=== PATIENT | female | born 1940 | race Caucasian/White ===

== ENCOUNTER 2019-04-12 20:38 | Inpatient (IN) ==
[2019-04-12] MEDS ORDERED: METOPROLOL TARTRATE 5 MG/5 ML VIAL IV STA (21:26)
[2019-04-12 21:27] LABS: Basophils # 0.1 10*3/uL (0.0-0.2); Basophils % 0.6 % (0.0-0.8); Eosinophils # 0.5 10*3/uL (0.0-0.87); Hematocrit 36.2 VOL% (35.7-47.0); Hemoglobin 11.2 GM/DL (12.0-16.0); Immature Granulocytes % 0.5 %; Immature Granulocytes Absolute 0.06 #; Lymphocytes # 1.8 10*3/uL (1.4-4.0); Lymphocytes % 13.8 % (21.3-54.2); Mean Corpuscular HGB Conc 30.9 GM/DL (32-36); Mean Corpuscular Volume 88.5 FL (87-102); Monocytes % 7.1 % (1.7-12.7); Platelet Count 321 T/CUMM (130-400); Red Blood Count 4.09 MC/CUMM (3.8-5.5); Red Cell Distribution Width 13.7 % (9.3-17.3); White Blood Count 12.8 T/CUMM (4-12)
[2019-04-12 21:35] LABS: PT Patient Result 11.2 SECS
[2019-04-12 21:49] LABS: Bilirubin,Total 0.5 MG/DL (0.2-1.0); Calcium 9.2 MG/DL (8.5-10.1); Osmolality,Calculated 273.7 MOS/KG (273-304); Total Protein 8.4 G/DL (6.4-8.3)
[2019-04-12 22:05] LABS: Apearance,Urine CLEAR (Clear); Bilirubin,Urine Negative (Negative); Blood, Urine Small mg/dL (Negative); Glucose,Urine (UA) Negative (Negative); Ketones,Urine 20 mg/dL (Negative); Nitrite,Urine Negative (Negative); Protein,Urine 30 MG/DL; RBC,Urine 1 /HPF (0-4); Squamous Epithelial Cell,Urine Occasional /HPF (0-10); Urine Color Yellow (Yellow); Urine Specific Gravity 1.009 (1.001-1.035); Urine Urobilinogen < 2.0 EU/DL (0.2-1.0); WBC,Urine 2 /HPF (0-6)
[2019-04-12] MEDS ORDERED: ASPIRIN CHEW 81 MG TABLET PO STA (22:14)
[2019-04-12] MEDS ORDERED: ENOXAPARIN 60 MG/0.6 ML SYRINGE SUBCUT STA (22:14)
[2019-04-12] MEDS ORDERED: hydrALAZINE 20 MG/1 ML VIAL IV STA (22:14)
[2019-04-12] MEDS ORDERED: POTASSIUM CHLORIDE RIDER 10 MEQ in PREMIX 1 EACH IV ONE (22:32)
[2019-04-12] MEDS ORDERED: POTASSIUM CHLORIDE 20 MEQ TABLET PO PRN (23:11)
[2019-04-12] MEDS ORDERED: MORPHINE 4 MG/1 ML VIAL IV PRN (23:11)
[2019-04-12] MEDS ORDERED: diphenhydrAMINE CAP 25 MG CAPSULE PO PRN (23:11)
[2019-04-12] MEDS ORDERED: BISACODYL 5 MG TABLET PO PRN (23:11)
[2019-04-12] MEDS ORDERED: NICOTINE 21 MG/24 HR PATCH TRANSDERM PRN (23:11)
[2019-04-12] MEDS ORDERED: guaiFENesin/DM ER 600-30 MG TABLET PO PRN (23:11)
[2019-04-12] MEDS ORDERED: ZALEPLON 5 MG CAPSULE PO PRN (23:11)
[2019-04-12] MEDS ORDERED: ACETAMINOPHEN 325 MG TABLET PO PRN (23:11)
[2019-04-12] MEDS ORDERED: ONDANSETRON 4 MG/2 ML VIAL IV PRN (23:11)
[2019-04-12] MEDS ORDERED: ALBUTEROL/IPRATROPIUM 3 ML NEB RESP TX PRN (23:11)
[2019-04-13 00:05] LABS: Risk Ratio 4.02; Thyroid Stimulating Hormone 0.785 uIU/ml (0.358-3.74); VLDL CHOLESTEROL 21.4 MG/DL
[2019-04-13] MEDS: cefTRIAXone 1,000 MG in SYRINGE 1 EACH IV SCH ×3 (00:05→12:23)
[2019-04-13] MEDS: AZITHROMYCIN INJ 500 MG in SODIUM CHLORIDE 0.9% 250 ML IV SCH (01:26)
[2019-04-13 06:37] LABS: Basophils # 0.1 10*3/uL (0.0-0.2); Basophils % 0.4 % (0.0-0.8); Eosinophils # 0.2 10*3/uL (0.0-0.87); Eosinophils % 1.2 % (0.00-10.9); Hematocrit 35.4 VOL% (35.7-47.0); Hemoglobin 10.8 GM/DL (12.0-16.0); Immature Granulocytes % 0.6 %; Immature Granulocytes Absolute 0.09 #; Lymphocytes # 1.1 10*3/uL (1.4-4.0); Lymphocytes % 7.2 % (21.3-54.2); Mean Corpuscular HGB Conc 30.5 GM/DL (32-36); Mean Corpuscular Volume 88.5 FL (87-102); Mean Platelet Volume 9.7 FL (9.6-12.0); Monocytes % 6.4 % (1.7-12.7); Neutrophils % 84.2 % (38.7-73.9); Platelet Count 320 T/CUMM (130-400); Red Cell Distribution Width 13.6 % (9.3-17.3); White Blood Count 15.3 T/CUMM (4-12)
[2019-04-13 06:56] LABS: Albumin 2.8 G/DL (3.4-5.0); Bilirubin,Total 0.4 MG/DL (0.2-1.0); Calcium 8.8 MG/DL (8.5-10.1); Osmolality,Calculated 274.7 MOS/KG (273-304); Total Protein 7.8 G/DL (6.4-8.3)
[2019-04-13] MEDS: ASPIRIN 325 MG TABLET PO SCH (08:33)
[2019-04-13] MEDS: POTASSIUM CHLORIDE 20 MEQ TABLET PO SCH ×3 (08:33→16:27)
[2019-04-13] MEDS: PANTOPRAZOLE 40 MG TABLET PO SCH (08:33)
[2019-04-13] MEDS: LACTATED RINGERS 1,000 ML IV SCH ×2 (08:35→20:38)
[2019-04-13] MEDS: hydrALAZINE 20 MG/1 ML VIAL IV PRN (08:52)
[2019-04-13] MEDS ORDERED: ENOXAPARIN 60 MG/0.6 ML SYRINGE SUBCUT SCH (09:00)
[2019-04-13 09:43] LABS: Vitamin B12 > 2000 PG/ML (211-911)
[2019-04-13] MEDS: ENOXAPARIN 40 MG/0.4 ML SYRINGE SUBCUT SCH (12:27)
[2019-04-13] MEDS ORDERED: methylPREDNISolone SOD SUC 40 MG/1 ML VIAL IV SCH (12:30)
[2019-04-13] MEDS: LISINOPRIL 10 MG TABLET PO SCH ×2 (14:28→21:40)
[2019-04-13] MEDS: ALBUTEROL/IPRATROPIUM 3 ML NEB RESP TX SCH ×3 (16:06→23:35)
[2019-04-13] MEDS: METAXALONE 800 MG TABLET PO SCH ×2 (16:27→21:40)
[2019-04-13] MEDS: ARFORMOTEROL 15 MCG/2 ML NEB RESP TX SCH (20:05)
[2019-04-13] MEDS: DORNASE ALFA 2.5 MG/2.5 ML VIAL RESP TX SCH (21:20)
[2019-04-13] MEDS: methylPREDNISolone SOD SUC 40 MG/1 ML VIAL IV SCH (21:41)
[2019-04-14] MEDS: AZITHROMYCIN INJ 500 MG in SODIUM CHLORIDE 0.9% 250 ML IV SCH (00:06)
[2019-04-14] MEDS: ALBUTEROL/IPRATROPIUM 3 ML NEB RESP TX SCH ×6 (03:19→22:58)
[2019-04-14] MEDS: methylPREDNISolone SOD SUC 40 MG/1 ML VIAL IV SCH ×3 (05:40→21:29)
[2019-04-14 06:22] LABS: Basophils % 0.2 % (0.0-0.8); Hematocrit 31.9 VOL% (35.7-47.0); Hemoglobin 9.9 GM/DL (12.0-16.0); Immature Granulocytes % 0.5 %; Immature Granulocytes Absolute 0.05 #; Lymphocytes # 0.5 10*3/uL (1.4-4.0); Lymphocytes % 4.8 % (21.3-54.2); Mean Corpuscular Volume 88.9 FL (87-102); Mean Platelet Volume 10.1 FL (9.6-12.0); Monocytes % 1.2 % (1.7-12.7); Neutrophils % 93.3 % (38.7-73.9); Platelet Count 366 T/CUMM (130-400); Red Blood Count 3.59 MC/CUMM (3.8-5.5); Red Cell Distribution Width 13.9 % (9.3-17.3); White Blood Count 9.4 T/CUMM (4-12)
[2019-04-14 06:39] LABS: Calcium 8.9 MG/DL (8.5-10.1); Osmolality,Calculated 281.4 MOS/KG (273-304)
[2019-04-14 06:42] LABS: Hypochromasia 1+; Lymphocytes 3 % (20-55); Platelet Estimate Adequate; Segmented Neutrophils 97 % (50-85); Total Cells Counted 100
[2019-04-14] MEDS: ARFORMOTEROL 15 MCG/2 ML NEB RESP TX SCH ×2 (07:20→19:14)
[2019-04-14] MEDS: DORNASE ALFA 2.5 MG/2.5 ML VIAL RESP TX SCH ×2 (07:20→19:14)
[2019-04-14 07:55] LABS: Total Protein (Chem) 7.4 G/DL (6.4-8.3)
[2019-04-14 08:10] LABS: Albumin (SPE) 3.8 G/DL (3.2-5.3); Alpha 1 (SPE) 0.4 G/DL (0.1-0.4); Alpha 1 (SPE) Rel % 5.8 %; Alpha 2 (SPE) 1.2 G/DL (0.4-1.0); Alpha 2 (SPE) Rel % 15.9 %; Beta (SPE) Rel % 13.8 %; Gamma (SPE) 0.9 G/DL (0.7-1.7); Gamma (SPE) Rel % 12.5 %
[2019-04-14] MEDS ORDERED: LISINOPRIL 10 MG TABLET PO SCH ×2 (09:04→09:08)
[2019-04-14] MEDS: LISINOPRIL 10 MG TABLET PO SCH (09:26)
[2019-04-14] MEDS ORDERED: REGADENOSON 0.4 MG/5 ML SYRINGE IV ONE (10:15)
[2019-04-14] MEDS: amLODIPine 5 MG TABLET PO SCH (10:20)
[2019-04-14] MEDS: PANTOPRAZOLE 40 MG TABLET PO SCH (10:20)
[2019-04-14] MEDS: METAXALONE 800 MG TABLET PO SCH ×3 (10:20→21:29)
[2019-04-14] MEDS: METOPROLOL TARTRATE 25 MG TABLET PO SCH ×2 (10:21→21:29)
[2019-04-14] MEDS: ROSUVASTATIN 20 MG TABLET PO SCH (10:21)
[2019-04-14] MEDS: ASPIRIN 325 MG TABLET PO SCH (10:21)
[2019-04-14] MEDS: ENOXAPARIN 40 MG/0.4 ML SYRINGE SUBCUT SCH (11:30)
[2019-04-14] MEDS: cefTRIAXone 1,000 MG in SYRINGE 1 EACH IV SCH (11:31)
[2019-04-14 12:20] LABS: Immuno Free Light Chain Kappa 3.42 MG/DL (0.33-1.94); Immuno Free Light Chain Lambda 2.64 MG/DL (0.57-2.63); Immuno Free Light Chain Ratio 1.3 MG/DL (0.26-1.65)
[2019-04-15] MEDS: AZITHROMYCIN INJ 500 MG in SODIUM CHLORIDE 0.9% 250 ML IV SCH (00:53)
[2019-04-15] MEDS: ALBUTEROL/IPRATROPIUM 3 ML NEB RESP TX SCH ×6 (03:25→23:56)
[2019-04-15 04:06] LABS: Basophils % 0.2 % (0.0-0.8); Hematocrit 31.4 VOL% (35.7-47.0); Hemoglobin 9.7 GM/DL (12.0-16.0); Immature Granulocytes % 0.9 %; Immature Granulocytes Absolute 0.21 #; Lymphocytes # 0.8 10*3/uL (1.4-4.0); Lymphocytes % 3.4 % (21.3-54.2); Mean Corpuscular HGB Conc 30.9 GM/DL (32-36); Mean Corpuscular Volume 88.5 FL (87-102); Mean Platelet Volume 9.7 FL (9.6-12.0); Monocytes % 1.9 % (1.7-12.7); Neutrophils % 93.6 % (38.7-73.9); Platelet Count 420 T/CUMM (130-400); Red Blood Count 3.55 MC/CUMM (3.8-5.5); Red Cell Distribution Width 13.9 % (9.3-17.3); White Blood Count 23.8 T/CUMM (4-12)
[2019-04-15 04:35] LABS: Lymphocytes 1 % (20-55); Platelet Estimate Adequate; Segmented Neutrophils 96 % (50-85); Total Cells Counted 100
[2019-04-15 04:36] LABS: Hypochromasia 1+
[2019-04-15 04:38] LABS: Albumin 2.6 G/DL (3.4-5.0); Bilirubin,Total 0.7 MG/DL (0.2-1.0); Calcium 8.3 MG/DL (8.5-10.1); Osmolality,Calculated 284.3 MOS/KG (273-304)
[2019-04-15] MEDS: methylPREDNISolone SOD SUC 40 MG/1 ML VIAL IV SCH ×3 (05:40→21:03)
[2019-04-15] MEDS ORDERED: PROMETHAZINE 25 MG/1 ML VIAL IM ONE (07:00)
[2019-04-15] MEDS ORDERED: MEPERIDINE 50 MG/1 ML VIAL IM ONE (07:00)
[2019-04-15] MEDS ORDERED: MIDAZOLAM 2 MG/2 ML VIAL ONE (07:24)
[2019-04-15] MEDS ORDERED: MIDAZOLAM 2 MG/2 ML VIAL IV ONE (07:30)
[2019-04-15] MEDS ORDERED: LIDOCAINE 2% 20 ML VIAL RESP TX ONE (07:30)
[2019-04-15] MEDS ORDERED: LIDOCAINE 1% 20 ML VIAL MISC INJ ONE (07:30)
[2019-04-15] MEDS ORDERED: LIDOCAINE 2% VISCOUS 100 ML BOTTLE SWISH/SPIT ONE (07:30)
[2019-04-15] MEDS: ARFORMOTEROL 15 MCG/2 ML NEB RESP TX SCH ×2 (08:30→19:36)
[2019-04-15] MEDS: DORNASE ALFA 2.5 MG/2.5 ML VIAL RESP TX SCH ×2 (08:40→19:36)
[2019-04-15] MEDS ORDERED: POTASSIUM CHLORIDE 20 MEQ TABLET PO ONE (11:21)
[2019-04-15] MEDS: METAXALONE 800 MG TABLET PO SCH ×3 (12:16→21:03)
[2019-04-15] MEDS: amLODIPine 5 MG TABLET PO SCH (12:33)
[2019-04-15] MEDS: ASPIRIN 325 MG TABLET PO SCH (12:33)
[2019-04-15] MEDS: LISINOPRIL 20 MG TABLET PO SCH ×2 (12:33→21:03)
[2019-04-15] MEDS: ROSUVASTATIN 20 MG TABLET PO SCH (12:34)
[2019-04-15] MEDS: METOPROLOL TARTRATE 25 MG TABLET PO SCH ×2 (12:34→21:03)
[2019-04-15] MEDS: PANTOPRAZOLE 40 MG TABLET PO SCH (12:34)
[2019-04-15] MEDS: ENOXAPARIN 40 MG/0.4 ML SYRINGE SUBCUT SCH (12:35)
[2019-04-15] MEDS: cefTRIAXone 1,000 MG in SYRINGE 1 EACH IV SCH (12:35)
[2019-04-16] MEDS: AZITHROMYCIN INJ 500 MG in SODIUM CHLORIDE 0.9% 250 ML IV SCH ×2 (00:13→23:54)
[2019-04-16] MEDS: ALBUTEROL/IPRATROPIUM 3 ML NEB RESP TX SCH ×6 (03:40→23:20)
[2019-04-16] MEDS: methylPREDNISolone SOD SUC 40 MG/1 ML VIAL IV SCH ×3 (05:00→21:42)
[2019-04-16 05:53] LABS: Basophils % 0.1 % (0.0-0.8); Hematocrit 30.6 VOL% (35.7-47.0); Hemoglobin 9.3 GM/DL (12.0-16.0); Immature Granulocytes % 1.1 %; Immature Granulocytes Absolute 0.22 #; Lymphocytes # 0.7 10*3/uL (1.4-4.0); Lymphocytes % 3.5 % (21.3-54.2); Mean Corpuscular HGB Conc 30.4 GM/DL (32-36); Mean Corpuscular Volume 89.5 FL (87-102); Mean Platelet Volume 9.4 FL (9.6-12.0); Monocytes % 3.2 % (1.7-12.7); Neutrophils % 92.1 % (38.7-73.9); Platelet Count 426 T/CUMM (130-400); Red Blood Count 3.42 MC/CUMM (3.8-5.5); Red Cell Distribution Width 14.1 % (9.3-17.3); White Blood Count 20.7 T/CUMM (4-12)
[2019-04-16 06:41] LABS: Alanine Aminotransferase 27 U/L (13-56); Albumin 2.6 G/DL (3.4-5.0); Alkaline Phosphatase 92 U/L (45-117); Aspartate Amino Transferase 22 U/L (0-37); Bilirubin,Total < 0.39 MG/DL (0.2-1.0); Blood Urea Nitrogen 20 MG/DL (7-18); Calcium 8.5 MG/DL (8.5-10.1); Glucose 142 MG/DL (74-106); Osmolality,Calculated 283.4 MOS/KG (273-304); Total Protein 6.7 G/DL (6.4-8.3)
[2019-04-16 06:44] LABS: Band Neutrophils 3 % (0-10); Lymphocytes 4 % (20-55); Platelet Estimate Increased; Segmented Neutrophils 90 % (50-85); Total Cells Counted 100
[2019-04-16] MEDS: ARFORMOTEROL 15 MCG/2 ML NEB RESP TX SCH ×2 (07:29→19:57)
[2019-04-16] MEDS: DORNASE ALFA 2.5 MG/2.5 ML VIAL RESP TX SCH ×2 (07:30→19:57)
[2019-04-16] MEDS: amLODIPine 5 MG TABLET PO SCH (09:31)
[2019-04-16] MEDS: LISINOPRIL 20 MG TABLET PO SCH ×2 (09:31→21:41)
[2019-04-16] MEDS: PANTOPRAZOLE 40 MG TABLET PO SCH (09:31)
[2019-04-16] MEDS: ROSUVASTATIN 20 MG TABLET PO SCH (09:31)
[2019-04-16] MEDS: METOPROLOL TARTRATE 25 MG TABLET PO SCH ×2 (09:31→21:41)
[2019-04-16] MEDS: ASPIRIN 325 MG TABLET PO SCH (09:31)
[2019-04-16] MEDS: METAXALONE 800 MG TABLET PO SCH ×3 (09:31→21:41)
[2019-04-16] MEDS ORDERED: METOPROLOL TARTRATE 25 MG TABLET PO ONE (10:44)
[2019-04-16] MEDS: ENOXAPARIN 40 MG/0.4 ML SYRINGE SUBCUT SCH (12:35)
[2019-04-16] MEDS: cefTRIAXone 1,000 MG in SYRINGE 1 EACH IV SCH (12:35)
[2019-04-17] MEDS: ALBUTEROL/IPRATROPIUM 3 ML NEB RESP TX SCH ×6 (03:15→23:47)
[2019-04-17] MEDS: DORNASE ALFA 2.5 MG/2.5 ML VIAL RESP TX SCH ×2 (07:26→19:42)
[2019-04-17] MEDS: ARFORMOTEROL 15 MCG/2 ML NEB RESP TX SCH ×2 (07:26→19:42)
[2019-04-17] MEDS: ASPIRIN 325 MG TABLET PO SCH (09:30)
[2019-04-17] MEDS: methylPREDNISolone SOD SUC 40 MG/1 ML VIAL IV SCH ×2 (09:30→20:58)
[2019-04-17] MEDS: ROSUVASTATIN 20 MG TABLET PO SCH (09:30)
[2019-04-17] MEDS: PANTOPRAZOLE 40 MG TABLET PO SCH (09:30)
[2019-04-17] MEDS: amLODIPine 5 MG TABLET PO SCH (09:30)
[2019-04-17] MEDS: METOPROLOL TARTRATE 25 MG TABLET PO SCH ×2 (09:30→20:56)
[2019-04-17] MEDS: LISINOPRIL 20 MG TABLET PO SCH ×2 (09:31→20:56)
[2019-04-17] MEDS: METAXALONE 800 MG TABLET PO SCH ×3 (09:31→20:56)
[2019-04-17] MEDS: cefTRIAXone 1,000 MG in SYRINGE 1 EACH IV SCH (13:04)
[2019-04-17] MEDS: ENOXAPARIN 40 MG/0.4 ML SYRINGE SUBCUT SCH (13:04)
[2019-04-17] MEDS: AZITHROMYCIN INJ 500 MG in SODIUM CHLORIDE 0.9% 250 ML IV SCH (23:56)
[2019-04-18] MEDS: ALBUTEROL/IPRATROPIUM 3 ML NEB RESP TX SCH ×6 (04:00→23:15)
[2019-04-18] MEDS: ARFORMOTEROL 15 MCG/2 ML NEB RESP TX SCH ×2 (07:30→19:19)
[2019-04-18] MEDS: DORNASE ALFA 2.5 MG/2.5 ML VIAL RESP TX SCH ×2 (07:43→19:29)
[2019-04-18] MEDS: METOPROLOL TARTRATE 25 MG TABLET PO SCH ×2 (08:55→22:04)
[2019-04-18] MEDS: LISINOPRIL 20 MG TABLET PO SCH ×2 (08:56→22:04)
[2019-04-18] MEDS: METAXALONE 800 MG TABLET PO SCH ×3 (08:56→22:05)
[2019-04-18] MEDS: ASPIRIN 325 MG TABLET PO SCH (08:57)
[2019-04-18] MEDS: PANTOPRAZOLE 40 MG TABLET PO SCH (08:57)
[2019-04-18] MEDS: ROSUVASTATIN 20 MG TABLET PO SCH (08:57)
[2019-04-18] MEDS: methylPREDNISolone SOD SUC 40 MG/1 ML VIAL IV SCH ×2 (08:57→22:04)
[2019-04-18] MEDS: amLODIPine 5 MG TABLET PO SCH (08:57)
[2019-04-18] MEDS ORDERED: MAGNESIUM SULF RIDER 2 GM in PREMIX 1 EACH IV PRN (09:06)
[2019-04-18] MEDS ORDERED: diphenhydrAMINE CAP 25 MG CAPSULE PO ONE (09:06)
[2019-04-18] MEDS ORDERED: DIAZEPAM 5 MG TABLET PO ONE (09:06)
[2019-04-18] MEDS ORDERED: POTASSIUM CHLORIDE RIDER 10 MEQ in PREMIX 1 EACH IV PRN (09:06)
[2019-04-18] MEDS: SODIUM CHLORIDE 0.9% 1,000 ML IV SCH ×2 (10:14→18:33)
[2019-04-18] MEDS: ENOXAPARIN 40 MG/0.4 ML SYRINGE SUBCUT SCH (13:11)
[2019-04-18] MEDS: cefTRIAXone 1,000 MG in SYRINGE 1 EACH IV SCH (13:13)
[2019-04-19] MEDS: AZITHROMYCIN INJ 500 MG in SODIUM CHLORIDE 0.9% 250 ML IV SCH (02:35)
[2019-04-19] MEDS: SODIUM CHLORIDE 0.9% 1,000 ML IV SCH ×4 (02:35→22:46)
[2019-04-19] MEDS: ALBUTEROL/IPRATROPIUM 3 ML NEB RESP TX SCH ×6 (03:46→23:39)
[2019-04-19 06:00] LABS: Basophils % 0.3 % (0.0-0.8); Hematocrit 32.3 VOL% (35.7-47.0); Hemoglobin 9.9 GM/DL (12.0-16.0); Immature Granulocytes % 3.8 %; Immature Granulocytes Absolute 0.54 #; Lymphocytes # 0.7 10*3/uL (1.4-4.0); Lymphocytes % 4.8 % (21.3-54.2); Mean Corpuscular HGB Conc 30.7 GM/DL (32-36); Mean Corpuscular Volume 89.2 FL (87-102); Mean Platelet Volume 9.3 FL (9.6-12.0); Monocytes % 3.2 % (1.7-12.7); Neutrophils % 87.9 % (38.7-73.9); Platelet Count 464 T/CUMM (130-400); Red Blood Count 3.62 MC/CUMM (3.8-5.5); Red Cell Distribution Width 14.2 % (9.3-17.3); White Blood Count 14.1 T/CUMM (4-12)
[2019-04-19 06:28] LABS: Calcium 7.9 MG/DL (8.5-10.1); Osmolality,Calculated 284.3 MOS/KG (273-304)
[2019-04-19 06:29] LABS: Hypochromasia Slight; Lymphocytes 2 % (20-55); Metamyelocytes 1 %; Platelet Estimate Normal; Polychromasia Few; Segmented Neutrophils 96 % (50-85); Total Cells Counted 100
[2019-04-19] MEDS ORDERED: DIAZEPAM 5 MG TABLET ONE (06:40)
[2019-04-19] MEDS: ASPIRIN 325 MG TABLET PO SCH (06:43)
[2019-04-19] MEDS: METOPROLOL TARTRATE 25 MG TABLET PO SCH ×3 (06:43→22:41)
[2019-04-19] MEDS ORDERED: LIDOCAINE 1% 20 ML VIAL ONE ×2 (06:48→07:39)
[2019-04-19] MEDS ORDERED: HEPARIN/NACL 0.9% 2 UNITS/ML 1,000 ML IV ONE (06:48)
[2019-04-19] MEDS ORDERED: DIAZEPAM 5 MG TABLET PO ONE (07:00)
[2019-04-19] MEDS ORDERED: diphenhydrAMINE CAP 25 MG CAPSULE PO ONE (07:00)
[2019-04-19] MEDS ORDERED: HYDROmorphone 2 MG/1 ML VIAL ONE (07:15)
[2019-04-19] MEDS ORDERED: MIDAZOLAM 2 MG/2 ML VIAL ONE (07:19)
[2019-04-19] MEDS: DORNASE ALFA 2.5 MG/2.5 ML VIAL RESP TX SCH ×2 (07:46→20:02)
[2019-04-19] MEDS: ARFORMOTEROL 15 MCG/2 ML NEB RESP TX SCH ×2 (07:47→20:02)
[2019-04-19] MEDS ORDERED: BIVALIRUDIN 250 MG VIAL IV ONE (08:08)
[2019-04-19] MEDS ORDERED: HEPARIN/NACL 0.9% 2 UNITS/ML 500 ML IV ONE (08:23)
[2019-04-19] MEDS ORDERED: TICAGRELOR 90 MG TABLET ONE (08:44)
[2019-04-19] MEDS: hydrALAZINE 20 MG/1 ML VIAL IV PRN (11:30)
[2019-04-19] MEDS ORDERED: hydrALAZINE 20 MG/1 ML VIAL ONE (11:30)
[2019-04-19] MEDS: ASPIRIN CHEW 81 MG TABLET PO SCH (12:42)
[2019-04-19] MEDS: ENOXAPARIN 40 MG/0.4 ML SYRINGE SUBCUT SCH (12:42)
[2019-04-19] MEDS: TICAGRELOR 90 MG TABLET PO SCH ×2 (12:42→22:39)
[2019-04-19] MEDS: LISINOPRIL 20 MG TABLET PO SCH ×2 (12:51→22:42)
[2019-04-19] MEDS: predniSONE 20 MG TABLET PO SCH (12:51)
[2019-04-19] MEDS: ROSUVASTATIN 20 MG TABLET PO SCH (12:51)
[2019-04-19] MEDS: PANTOPRAZOLE 40 MG TABLET PO SCH (12:52)
[2019-04-19] MEDS: amLODIPine 5 MG TABLET PO SCH (12:52)
[2019-04-19] MEDS: METAXALONE 800 MG TABLET PO SCH ×3 (12:52→22:41)
[2019-04-19] MEDS: cefTRIAXone 1,000 MG in SYRINGE 1 EACH IV SCH (15:42)
[2019-04-20] MEDS: AZITHROMYCIN INJ 500 MG in SODIUM CHLORIDE 0.9% 250 ML IV SCH (02:11)
[2019-04-20] MEDS: ALBUTEROL/IPRATROPIUM 3 ML NEB RESP TX SCH ×2 (04:15→07:24)
[2019-04-20 05:20] LABS: Basophils % 0.1 % (0.0-0.8); Eosinophils % 0.1 % (0.00-10.9); Hematocrit 28.8 VOL% (35.7-47.0); Immature Granulocytes % 2.5 %; Immature Granulocytes Absolute 0.47 #; Lymphocytes # 0.7 10*3/uL (1.4-4.0); Lymphocytes % 3.8 % (21.3-54.2); Mean Corpuscular HGB Conc 31.3 GM/DL (32-36); Mean Corpuscular Volume 88.6 FL (87-102); Mean Platelet Volume 9.5 FL (9.6-12.0); Monocytes % 7.2 % (1.7-12.7); Neutrophils % 86.3 % (38.7-73.9); Platelet Count 460 T/CUMM (130-400); Red Blood Count 3.25 MC/CUMM (3.8-5.5); Red Cell Distribution Width 14.4 % (9.3-17.3); White Blood Count 19.1 T/CUMM (4-12)
[2019-04-20 05:43] LABS: Blood Urea Nitrogen 14 MG/DL (7-18); Calcium 7.7 MG/DL (8.5-10.1); Glucose 90 MG/DL (74-106); Osmolality,Calculated 283.1 MOS/KG (273-304)
[2019-04-20 05:44] LABS: Troponin I 0.605 NG/ML (0.00-0.045)
[2019-04-20 05:47] LABS: Lymphocytes 9 % (20-55); Segmented Neutrophils 78 % (50-85); Total Cells Counted 100
[2019-04-20 05:48] LABS: Hypochromasia 1+; Platelet Estimate Adequate
[2019-04-20] MEDS: ARFORMOTEROL 15 MCG/2 ML NEB RESP TX SCH (07:24)
[2019-04-20] MEDS: DORNASE ALFA 2.5 MG/2.5 ML VIAL RESP TX SCH (07:29)
[2019-04-20 08:19] VITALS: BP 156/77
[2019-04-20] MEDS: METOPROLOL TARTRATE 25 MG TABLET PO SCH (09:15)
[2019-04-20] MEDS: ASPIRIN CHEW 81 MG TABLET PO SCH (09:15)
[2019-04-20] MEDS: METAXALONE 800 MG TABLET PO SCH (09:16)
[2019-04-20] MEDS: PANTOPRAZOLE 40 MG TABLET PO SCH (09:16)
[2019-04-20] MEDS: LISINOPRIL 20 MG TABLET PO SCH (09:16)
[2019-04-20] MEDS: amLODIPine 5 MG TABLET PO SCH (09:17)
[2019-04-20] MEDS: predniSONE 20 MG TABLET PO SCH (09:17)
[2019-04-20] MEDS: TICAGRELOR 90 MG TABLET PO SCH (09:17)
[2019-04-20] MEDS: ROSUVASTATIN 20 MG TABLET PO SCH (09:17)
== END 2019-04-20 11:47 | disposition home health service (06) | DRG 246 ==
LOC: N.ED 20:38 → N.EDINP 20:38 → N.TELES 04-13 00:02 → SUATTDRO 04-13 12:21
PROVIDERS: ADMIT Family Medicine; ATTEND Internal Medicine
PROC: CLCCHCL (ICD-10-PCS; 2019-04-19 07:45)

== ENCOUNTER 2021-01-31 15:37 | Inpatient (IN) ==
[2021-01-31] MEDS ORDERED: SODIUM CHLORIDE 0.9% 1,000 ML IV STA (16:29)
[2021-01-31 16:57] LABS: Bilirubin,Total 0.6 MG/DL (0.2-1.0); Calcium 8.7 MG/DL (8.5-10.1)
[2021-01-31 16:58] LABS: High Sensitive Troponin I* 26.3 ng/L (0-54); Osmolality,Calculated 294.3 MOS/KG (273-304); Potassium 3.7 MMOL/L (3.5-5.1); Total Protein 7.5 G/DL (6.4-8.2)
[2021-01-31 17:01] LABS: Basophils % 0.1 % (0.0-0.8); Hematocrit 33.3 VOL% (35.7-47.0); Hemoglobin 10.2 GM/DL (12.0-16.0); Immature Granulocytes % 0.8 %; Immature Granulocytes Absolute 0.14 #; Lymphocytes # 0.6 10*3/uL (1.4-4.0); Lymphocytes % 3.2 % (21.3-54.2); Mean Corpuscular HGB Conc 30.6 GM/DL (32-36); Mean Corpuscular Volume 74.7 FL (87-102); Mean Platelet Volume 10.6 FL (9.6-12.0); Monocytes % 8.4 % (1.7-12.7); Neutrophils % 87.5 % (38.7-73.9); Platelet Count 305 T/CUMM (130-400); Red Blood Count 4.46 MC/CUMM (3.8-5.5); Red Cell Distribution Width 17.1 % (9.3-17.3); White Blood Count 18.3 T/CUMM (4-12)
[2021-01-31 17:09] LABS: INR 1.1; PT Patient Result 11.9 SECS (10.5-12.0); Partial Thromboplastin Time 23.9 SECS (23.9-33.8)
[2021-01-31 17:22] LABS: Atypical Lymphocytes Few
[2021-01-31 17:26] LABS: Lymphocytes 3 % (20-55); Segmented Neutrophils 90 % (50-85); Total Cells Counted 100
[2021-01-31 17:26] LABS: Bilirubin,Urine Negative (Negative); Blood, Urine Moderate mg/dL (Negative); Glucose,Urine (UA) 50 mg/dL (Negative); Ketones,Urine 5 mg/dL (Negative); Nitrite,Urine Negative (Negative); Protein,Urine 30 MG/DL; RBC,Urine 1 /HPF (0-4); Urine Appearance CLEAR (Clear); Urine Color Yellow (Yellow); Urine Specific Gravity 1.015 (1.001-1.035); Urine Urobilinogen < 2.0 EU/DL (0.2-1.0)
[2021-01-31 17:27] LABS: Hypochromasia 1+; Microcytosis 1+; Ovalocytes Few; Platelet Estimate Increased
[2021-01-31] MEDS ORDERED: DOCUSATE SODIUM 100 MG CAPSULE PO PRN (17:34)
[2021-01-31] MEDS ORDERED: GLUCAGON 1 MG VIAL IM PRN (17:34)
[2021-01-31] MEDS ORDERED: guaiFENesin/DM ER 600-30 MG TABLET PO PRN (17:34)
[2021-01-31] MEDS ORDERED: ACETAMINOPHEN 325 MG TABLET PO PRN (17:34)
[2021-01-31] MEDS ORDERED: DEXTROSE 50% 25 GM/50 ML VIAL IV PRN (17:34)
[2021-01-31] MEDS ORDERED: hydrALAZINE 20 MG/1 ML VIAL IV PRN (17:34)
[2021-01-31] MEDS ORDERED: ALBUTEROL 2.5 MG/3 ML NEB RESP TX PRN (17:34)
[2021-01-31] MEDS: ROSUVASTATIN 20 MG TABLET PO SCH (21:53)
[2021-01-31] MEDS: METOPROLOL TARTRATE 25 MG TABLET PO SCH (21:53)
[2021-01-31] MEDS: SODIUM CHLOR 0.45% KCL 20 MEQ 20 MEQ/1,000 ML BAG IV SCH (21:53)
[2021-02-01 05:22] LABS: Basophils % 0.2 % (0.0-0.8); Eosinophils # 0.1 10*3/uL (0.0-0.87); Eosinophils % 0.7 % (0.00-10.9); Hematocrit 28.2 VOL% (35.7-47.0); Hemoglobin 8.5 GM/DL (12.0-16.0); Immature Granulocytes % 0.7 %; Immature Granulocytes Absolute 0.08 #; Lymphocytes # 1.2 10*3/uL (1.4-4.0); Lymphocytes % 10.2 % (21.3-54.2); Mean Corpuscular HGB Conc 30.1 GM/DL (32-36); Mean Corpuscular Volume 76.4 FL (87-102); Mean Platelet Volume 10.7 FL (9.6-12.0); Monocytes % 10.6 % (1.7-12.7); Neutrophils % 77.6 % (38.7-73.9); Platelet Count 239 T/CUMM (130-400); Red Blood Count 3.69 MC/CUMM (3.8-5.5); Red Cell Distribution Width 16.8 % (9.3-17.3); White Blood Count 12.2 T/CUMM (4-12)
[2021-02-01 05:52] LABS: Calcium 8.1 MG/DL (8.5-10.1); Osmolality,Calculated 289.3 MOS/KG (273-304); Potassium 3.7 MMOL/L (3.5-5.1); Risk Ratio 2.67; Thyroid Stimulating Hormone 0.627 uIU/ml (0.358-3.74); VLDL CHOLESTEROL 18.4 MG/DL
[2021-02-01] MEDS: SODIUM CHLOR 0.45% KCL 20 MEQ 20 MEQ/1,000 ML BAG IV SCH (07:51)
[2021-02-01] MEDS: ONDANSETRON 4 MG/2 ML VIAL IV PRN (07:52)
[2021-02-01] MEDS: MORPHINE 4 MG/1 ML VIAL IV PRN ×3 (07:54→17:38)
[2021-02-01] MEDS: POTASSIUM GLUCONATE 500 MG TABLET PO SCH (09:37)
[2021-02-01] MEDS: METOPROLOL TARTRATE 25 MG TABLET PO SCH ×2 (09:37→21:08)
[2021-02-01] MEDS: PANTOPRAZOLE 40 MG TABLET PO SCH (09:37)
[2021-02-01] MEDS: CHOLECALCIFEROL 5,000 UNIT TABLET PO SCH (09:37)
[2021-02-01] MEDS: HEPARIN 5,000 UNIT/1 ML VIAL SUBCUT SCH ×2 (11:29→18:14)
[2021-02-01] MEDS: ROSUVASTATIN 20 MG TABLET PO SCH (21:08)
[2021-02-02] MEDS: HEPARIN 5,000 UNIT/1 ML VIAL SUBCUT SCH ×3 (02:32→17:16)
[2021-02-02] MEDS: MORPHINE 4 MG/1 ML VIAL IV PRN ×4 (07:58→22:20)
[2021-02-02] MEDS: PANTOPRAZOLE 40 MG TABLET PO SCH (10:19)
[2021-02-02] MEDS: CHOLECALCIFEROL 5,000 UNIT TABLET PO SCH (10:19)
[2021-02-02] MEDS: METOPROLOL TARTRATE 25 MG TABLET PO SCH ×2 (10:19→20:08)
[2021-02-02] MEDS: POTASSIUM GLUCONATE 500 MG TABLET PO SCH (10:19)
[2021-02-02] MEDS ORDERED: ALBUTEROL 2.5 MG/3 ML NEB RESP TX ONE (14:53)
[2021-02-02] MEDS: ALBUTEROL 2.5 MG/3 ML NEB RESP TX SCH (15:00)
[2021-02-02] MEDS: ROSUVASTATIN 20 MG TABLET PO SCH (20:08)
[2021-02-03] MEDS: HEPARIN 5,000 UNIT/1 ML VIAL SUBCUT SCH ×3 (01:03→20:50)
[2021-02-03] MEDS: MORPHINE 4 MG/1 ML VIAL IV PRN ×4 (03:53→20:56)
[2021-02-03] MEDS: ALBUTEROL 2.5 MG/3 ML NEB RESP TX SCH ×4 (07:54→22:48)
[2021-02-03 13:12] LABS: Basophils % 0.4 % (0.0-0.8); Eosinophils # 0.3 10*3/uL (0.0-0.87); Eosinophils % 2.4 % (0.00-10.9); Hematocrit 30.5 VOL% (35.7-47.0); Immature Granulocytes % 1.4 %; Immature Granulocytes Absolute 0.15 #; Lymphocytes # 1.4 10*3/uL (1.4-4.0); Lymphocytes % 12.5 % (21.3-54.2); Mean Corpuscular HGB Conc 29.5 GM/DL (32-36); Mean Corpuscular Volume 78.4 FL (87-102); Monocytes % 9.4 % (1.7-12.7); Neutrophils % 73.9 % (38.7-73.9); Platelet Count 262 T/CUMM (130-400); Red Blood Count 3.89 MC/CUMM (3.8-5.5); Red Cell Distribution Width 16.6 % (9.3-17.3); White Blood Count 10.9 T/CUMM (4-12)
[2021-02-03 13:17] LABS: INR 1.1; PT Patient Result 11.9 SECS (10.5-12.0); Partial Thromboplastin Time 26.4 SECS (23.9-33.8)
[2021-02-03 13:30] LABS: Albumin 2.5 G/DL (3.4-5.0); Bilirubin,Total 0.4 MG/DL (0.2-1.0); Calcium 8.4 MG/DL (8.5-10.1); Osmolality,Calculated 271.8 MOS/KG (273-304); Potassium 3.7 MMOL/L (3.5-5.1); Total Protein 6.5 G/DL (6.4-8.2)
[2021-02-03] MEDS ORDERED: propofoL 200 MG/20 ML VIAL IV ONE (14:40)
[2021-02-03] MEDS ORDERED: LIDOCAINE 2% 5 ML VIAL ONE (14:40)
[2021-02-03] MEDS ORDERED: fentaNYL 100 MCG/2 ML VIAL ONE (14:40)
[2021-02-03] MEDS ORDERED: ACETAMINOPHEN INJ 1,000 MG/100 ML VIAL IV ONE (14:41)
[2021-02-03] MEDS: POTASSIUM GLUCONATE 500 MG TABLET PO SCH (15:10)
[2021-02-03] MEDS: METOPROLOL TARTRATE 25 MG TABLET PO SCH ×2 (15:10→20:54)
[2021-02-03] MEDS: PANTOPRAZOLE 40 MG TABLET PO SCH (15:11)
[2021-02-03] MEDS: CHOLECALCIFEROL 5,000 UNIT TABLET PO SCH (15:11)
[2021-02-03] MEDS ORDERED: SEVOFLURANE 1 UNIT/15 MINUTE INH ONE ×3 (16:30→17:32)
[2021-02-03] MEDS ORDERED: ceFAZolin 1,000 MG VIAL ONE (17:58)
[2021-02-03] MEDS: ROSUVASTATIN 20 MG TABLET PO SCH (20:54)
[2021-02-03] MEDS: ONDANSETRON 4 MG/2 ML VIAL IV PRN (20:56)
[2021-02-04] MEDS: HEPARIN 5,000 UNIT/1 ML VIAL SUBCUT SCH (03:27)
[2021-02-04] MEDS: MORPHINE 4 MG/1 ML VIAL IV PRN (05:06)
[2021-02-04] MEDS: ALBUTEROL 2.5 MG/3 ML NEB RESP TX SCH ×6 (05:07→23:00)
[2021-02-04 06:40] LABS: Basophils % 0.2 % (0.0-0.8); Eosinophils # 0.3 10*3/uL (0.0-0.87); Eosinophils % 2.7 % (0.00-10.9); Hematocrit 28.1 VOL% (35.7-47.0); Hemoglobin 8.2 GM/DL (12.0-16.0); Immature Granulocytes % 0.6 %; Immature Granulocytes Absolute 0.07 #; Mean Corpuscular HGB Conc 29.2 GM/DL (32-36); Mean Platelet Volume 10.4 FL (9.6-12.0); Monocytes % 9.8 % (1.7-12.7); Neutrophils % 78.7 % (38.7-73.9); Platelet Count 266 T/CUMM (130-400); Red Blood Count 3.65 MC/CUMM (3.8-5.5); Red Cell Distribution Width 16.5 % (9.3-17.3); White Blood Count 12.2 T/CUMM (4-12)
[2021-02-04 06:56] LABS: Calcium 8.4 MG/DL (8.5-10.1); Potassium 4.3 MMOL/L (3.5-5.1)
[2021-02-04] MEDS: CHOLECALCIFEROL 5,000 UNIT TABLET PO SCH (09:23)
[2021-02-04] MEDS: PANTOPRAZOLE 40 MG TABLET PO SCH (09:23)
[2021-02-04] MEDS: METOPROLOL TARTRATE 25 MG TABLET PO SCH ×2 (09:24→20:53)
[2021-02-04] MEDS: POTASSIUM GLUCONATE 500 MG TABLET PO SCH (09:28)
[2021-02-04] MEDS: ASPIRIN CHEW 81 MG TABLET PO SCH (09:28)
[2021-02-04] MEDS: ENOXAPARIN 40 MG/0.4 ML SYRINGE SUBCUT SCH (11:32)
[2021-02-04] MEDS: ROSUVASTATIN 20 MG TABLET PO SCH (20:53)
[2021-02-05 05:17] LABS: Basophils % 0.4 % (0.0-0.8); Eosinophils # 0.3 10*3/uL (0.0-0.87); Eosinophils % 3.1 % (0.00-10.9); Hematocrit 24.7 VOL% (35.7-47.0); Hemoglobin 7.4 GM/DL (12.0-16.0); Immature Granulocytes % 0.6 %; Immature Granulocytes Absolute 0.07 #; Lymphocytes % 9.6 % (21.3-54.2); Mean Corpuscular Volume 76.5 FL (87-102); Mean Platelet Volume 10.4 FL (9.6-12.0); Monocytes % 10.7 % (1.7-12.7); Neutrophils % 75.6 % (38.7-73.9); Platelet Count 268 T/CUMM (130-400); Red Blood Count 3.23 MC/CUMM (3.8-5.5); Red Cell Distribution Width 16.6 % (9.3-17.3); White Blood Count 10.9 T/CUMM (4-12)
[2021-02-05] MEDS: ALBUTEROL 2.5 MG/3 ML NEB RESP TX SCH ×6 (05:19→19:56)
[2021-02-05] MEDS: CHOLECALCIFEROL 5,000 UNIT TABLET PO SCH (08:40)
[2021-02-05] MEDS: PANTOPRAZOLE 40 MG TABLET PO SCH (08:40)
[2021-02-05] MEDS: METOPROLOL TARTRATE 25 MG TABLET PO SCH ×2 (08:40→21:18)
[2021-02-05] MEDS: ASPIRIN CHEW 81 MG TABLET PO SCH (08:40)
[2021-02-05] MEDS ORDERED: CLOPIDOGREL 75 MG TABLET PO SCH (09:00)
[2021-02-05] MEDS: POTASSIUM GLUCONATE 500 MG TABLET PO SCH (09:06)
[2021-02-05] MEDS ORDERED: SODIUM CHLORIDE 0.9% 1,000 ML IV PRN (09:35)
[2021-02-05] MEDS ORDERED: diphenhydrAMINE CAP 25 MG CAPSULE PO ONE (10:00)
[2021-02-05] MEDS: ENOXAPARIN 40 MG/0.4 ML SYRINGE SUBCUT SCH (15:03)
[2021-02-05 19:03] LABS: Hematocrit 34.2 VOL% (35.7-47.0); Hemoglobin 10.9 GM/DL (12.0-16.0)
[2021-02-05] MEDS: ROSUVASTATIN 20 MG TABLET PO SCH (21:18)
[2021-02-06] MEDS: ALBUTEROL 2.5 MG/3 ML NEB RESP TX SCH ×4 (04:51→14:46)
[2021-02-06 04:56] LABS: Basophils % 0.3 % (0.0-0.8); Eosinophils # 0.5 10*3/uL (0.0-0.87); Eosinophils % 4.4 % (0.00-10.9); Hematocrit 32.3 VOL% (35.7-47.0); Hemoglobin 10.2 GM/DL (12.0-16.0); Immature Granulocytes % 0.8 %; Immature Granulocytes Absolute 0.08 #; Mean Corpuscular HGB Conc 31.6 GM/DL (32-36); Mean Corpuscular Volume 81.4 FL (87-102); Mean Platelet Volume 10.2 FL (9.6-12.0); Monocytes % 9.9 % (1.7-12.7); Neutrophils % 74.6 % (38.7-73.9); Platelet Count 249 T/CUMM (130-400); Red Cell Distribution Width 18.6 % (9.3-17.3); White Blood Count 10.4 T/CUMM (4-12)
[2021-02-06 04:59] LABS: Red Blood Count 3.97 MC/CUMM (3.8-5.5)
[2021-02-06] MEDS: ASPIRIN CHEW 81 MG TABLET PO SCH (09:54)
[2021-02-06] MEDS: METOPROLOL TARTRATE 25 MG TABLET PO SCH (09:55)
[2021-02-06] MEDS: CHOLECALCIFEROL 5,000 UNIT TABLET PO SCH (09:55)
[2021-02-06] MEDS: PANTOPRAZOLE 40 MG TABLET PO SCH (09:55)
[2021-02-06] MEDS: POTASSIUM GLUCONATE 500 MG TABLET PO SCH (09:58)
[2021-02-06 12:10] VITALS: BP 135/73
[2021-02-06] MEDS: ENOXAPARIN 40 MG/0.4 ML SYRINGE SUBCUT SCH (12:48)
== END 2021-02-06 17:00 | DRG 481 ==
LOC: EDBD → EDUNIT# → N.ED 15:37 → N.EDINP 17:34 → SUATTDRO 17:34 → N.EDINP 19:39 → N.3E 19:59 → N.TELEN 02-02 17:50 → N.3E 02-03 18:36
PROVIDERS: ADMIT Internal Medicine; ATTEND Internal Medicine